=== PATIENT | male | born 1950 | race Caucasian/White ===

== ENCOUNTER 2019-01-30 09:41 | Inpatient (IN) | payer MEDICARE, OTHER ==
[~2019-01-30] VITALS: Ht 162.6 cm; Wt 80.1 kg
[~2019-01-30 09:41] MED LIST: /VERA12TA PO; ASPIRIN PO; CELE1CAP4 PO; COUM1TAB18 PO; COZA100T2 PO; DIPYRIDAMOLE PO; LIPI20TA PO; LYRI75CA PO; OXYC1TAB23 PO; SILD50TA OR; TYLE325T5 PO; ULTR50TA PO; VITAD1000T OR; [UNRECOGNIZED DRUG - CODE] PO
[2019-01-30] MEDS ORDERED: CIAL10TA PO (09:48)
[2019-01-30] MEDS ORDERED: LOSA25TA14 PO (09:48)
[2019-01-30] MEDS ORDERED: MULTCAP PO (09:48)
[2019-01-30] MEDS ORDERED: ZANT150T40 PO (09:48)
[2019-01-30 10:13] LABS: BASO % 0.2 % (0.0-1.0); EOS # 0.1 10^3/uL (0.0-0.50); HEMOGLOBIN 9.6 g/dl (13.5-17.5); LYMPH % 18.9 % (24.0-44.0); MEAN CORPUSCULAR HEMOGLOBIN 33.7 pg (27.0-33.0); MEAN CORPUSCULAR HGB CONC 33.1 g/dl (32.0-36.5); MEAN CORPUSCULAR VOLUME 101.8 fl (80.0-96.0); MONO # 0.5 10^3/uL (0.0-0.8); MONO % 9.7 % (0.0-5.0); NEUTROPHILS # 3.8 10^3/uL (1.8-7.7); PLATELET COUNT, AUTOMATED 235 10^3/uL (150-450); RED BLOOD COUNT 2.85 10^6/uL (4.30-6.10); WHITE BLOOD COUNT 5.5 10^3/uL (4.0-10.0)
[2019-01-30 10:42] LABS: BLOOD UREA NITROGEN 18 MG/DL (7-18); CALCIUM LEVEL 8.8 MG/DL (8.8-10.2); CARBON DIOXIDE LEVEL 30 MEQ/L (21-32); CHLORIDE LEVEL 107 MEQ/L (98-107); CREATININE FOR GFR 0.83 MG/DL (0.70-1.30); GLOMERULAR FILTRATION RATE > 60.0 (>49); GLUCOSE, FASTING 82 MG/DL (70-100); SODIUM LEVEL 143 MEQ/L (136-145)
[2019-01-30] MEDS ORDERED: PANTOPRAZOLE 40MG INJ (PROTONIX) (C9113) IV ONE (11:30)
[2019-01-30 11:32] LABS: INR 1.13; PARTIAL THROMBOPLASTIN TIME 27.1 SECONDS (25.0-38.4); PROTHROMBIN TIME 14.2 SECONDS (11.8-14.0)
[2019-01-30 11:42] LABS: CK-MB VALUE MASS 1.7 NG/ML (<3.6); CPK CREATINE PHOSPHOKINASE 85 U/L (39-308); TROPONIN I < 0.02 NG/ML (< 0.10)
[2019-01-30] MEDS: PANTOPRAZOLE SODIUM 40 MG in D5W 50 ML IV SCH ×3 (12:11→20:32)
[2019-01-30] MEDS ORDERED: CALCCAP4 PO (13:38)
[2019-01-30] MEDS ORDERED: ATOR1TAB21 PO (13:38)
[2019-01-30] MEDS ORDERED: RANI300T PO (13:38)
[2019-01-30] MEDS ORDERED: VERA300C PO (13:38)
[2019-01-30] MEDS ORDERED: AGGR1CAP PO (13:38)
[2019-01-30] MEDS ORDERED: VITA500T41 PO (13:38)
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
[2019-01-30 16:15] VITALS: BP 136/77
[2019-01-30] MEDS: SUCRALFATE 1 GM TAB PO SCH ×2 (16:32→20:32)
[2019-01-30 16:35] LABS: HEMATOCRIT 27.5 % (42.0-52.0); HEMOGLOBIN 9.3 g/dl (13.5-17.5)
[2019-01-30 16:40] VITALS: BP_SYST 124; BP_SYST 126; BP_SYST 133; BP_DIAS 86; BP_DIAS 88; BP_DIAS 90
--- NOTE | 2019-01-30 20:17 | ECGEPIP ---
[facility] - ED Test Date: 2019-01-30 Pat Name: VALORIE CHAVEZ Department: Room: - Gender: Male Clock Maker: [id number] : [id number] Requested By: Tal Gunter Order Number: [id number] Reading MD: Tal Kinsey Measurements Intervals [place] Rate: 53 P: 16 VA: 219 QRS: -32 QRSD: 165 T: 44 QT: 494 QTc: 467 Interpretive Statements SINUS BRADYCARDIA WITH FIRST DEGREE AV BLOCK WITH OCCASIONAL SUPRAVENTRICULAR PREMATURE COMPLEXES NO PRIORS FOR COMPARISON LEFT AXIS DEVIATION LEFT BUNDLE BRANCH BLOCK Electronically Signed on 01-30-2019 20:16:38 EDT by Tal Kinsey
[2019-01-30 22:00] VITALS: BP 112/73
[2019-01-30 22:09] LABS: HEMOGLOBIN 9.2 g/dl (13.5-17.5)
[2019-01-30 22:30] VITALS: BP_SYST 106; BP_SYST 138; BP_SYST 146; BP_DIAS 59; BP_DIAS 76; BP_DIAS 79
[2019-01-31] MEDS: PANTOPRAZOLE SODIUM 40 MG in D5W 50 ML IV SCH ×5 (03:23→23:32)
[2019-01-31 04:16] LABS: BASO % 0.2 % (0.0-1.0); EOS # 0.2 10^3/uL (0.0-0.50); EOS % 3.8 % (0.0-3.0); HEMATOCRIT 27.4 % (42.0-52.0); HEMOGLOBIN 9.1 g/dl (13.5-17.5); LYMPH # 1.2 10^3/uL (1.5-4.5); LYMPH % 23.7 % (24.0-44.0); MEAN CORPUSCULAR HEMOGLOBIN 32.7 pg (27.0-33.0); MEAN CORPUSCULAR HGB CONC 33.2 g/dl (32.0-36.5); MEAN CORPUSCULAR VOLUME 98.6 fl (80.0-96.0); MONO # 0.7 10^3/uL (0.0-0.8); MONO % 13.1 % (0.0-5.0); PLATELET COUNT, AUTOMATED 215 10^3/uL (150-450); RED BLOOD COUNT 2.78 10^6/uL (4.30-6.10)
[2019-01-31 04:39] LABS: BLOOD UREA NITROGEN 11 MG/DL (7-18); CARBON DIOXIDE LEVEL 32 MEQ/L (21-32); CHLORIDE LEVEL 109 MEQ/L (98-107); CREATININE FOR GFR 0.85 MG/DL (0.70-1.30); GLOMERULAR FILTRATION RATE > 60.0 (>49); GLUCOSE, FASTING 93 MG/DL (70-100); POTASSIUM SERUM 4.7 MEQ/L (3.5-5.1); SODIUM LEVEL 143 MEQ/L (136-145)
[2019-01-31 06:00] VITALS: BP 120/75
[2019-01-31] MEDS: SUCRALFATE 1 GM TAB PO SCH ×4 (08:07→21:50)
[2019-01-31] MEDS: ATORVASTATIN 20 MG TAB PO SCH (08:07)
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
[2019-01-31 12:03] LABS: HEMATOCRIT 29.4 % (42.0-52.0); HEMOGLOBIN 9.7 g/dl (13.5-17.5)
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
[2019-01-31 14:00] VITALS: BP 127/60
[2019-01-31 14:30] VITALS: BP_SYST 130; BP_SYST 131; BP_SYST 132; BP_DIAS 69; BP_DIAS 70
[2019-01-31 16:16] LABS: HEMATOCRIT 31.3 % (42.0-52.0); HEMOGLOBIN 10.4 g/dl (13.5-17.5)
[2019-01-31 22:00] VITALS: BP_SYST 133; BP_SYST 141; BP_SYST 143; BP_SYST 144; BP_DIAS 72; BP_DIAS 75; BP_DIAS 78; BP_DIAS 80
[2019-02-01 00:41] LABS: HEMOGLOBIN 9.2 g/dl (13.5-17.5)
[2019-02-01] MEDS: PANTOPRAZOLE SODIUM 40 MG in D5W 50 ML IV SCH (04:37)
[2019-02-01 06:00] VITALS: BP_SYST 131; BP_SYST 144; BP_SYST 154; BP_SYST 155; BP_DIAS 73; BP_DIAS 84; BP_DIAS 86; BP_DIAS 88
[2019-02-01] MEDS ORDERED: SUCR1TA PO (07:04)
[2019-02-01] MEDS ORDERED: PANT40TA3 PO ×2 (07:04→10:20)
[2019-02-01] MEDS ORDERED: VERA100C PO (07:04)
[2019-02-01 07:49] LABS: BASO % 0.3 % (0.0-1.0); EOS # 0.2 10^3/uL (0.0-0.50); EOS % 2.3 % (0.0-3.0); HEMATOCRIT 30.7 % (42.0-52.0); HEMOGLOBIN 9.9 g/dl (13.5-17.5); LYMPH # 1.2 10^3/uL (1.5-4.5); MEAN CORPUSCULAR HEMOGLOBIN 32.9 pg (27.0-33.0); MEAN CORPUSCULAR HGB CONC 32.2 g/dl (32.0-36.5); MONO # 0.7 10^3/uL (0.0-0.8); NEUTROPHILS # 4.8 10^3/uL (1.8-7.7); NEUTROPHILS % 70.3 % (36.0-66.0); PLATELET COUNT, AUTOMATED 274 10^3/uL (150-450); RED BLOOD COUNT 3.01 10^6/uL (4.30-6.10); WHITE BLOOD COUNT 6.8 10^3/uL (4.0-10.0)
[2019-02-01] MEDS: SUCRALFATE 1 GM TAB PO SCH (07:56)
[2019-02-01] MEDS: ATORVASTATIN 20 MG TAB PO SCH (07:57)
[2019-02-01 08:17] LABS: BLOOD UREA NITROGEN 10 MG/DL (7-18); CALCIUM LEVEL 8.6 MG/DL (8.8-10.2); CARBON DIOXIDE LEVEL 32 MEQ/L (21-32); CHLORIDE LEVEL 108 MEQ/L (98-107); CREATININE FOR GFR 0.92 MG/DL (0.70-1.30); FERRITIN 13 NG/ML (26-388); GLOMERULAR FILTRATION RATE > 60.0 (>49); GLUCOSE, FASTING 95 MG/DL (70-100); IRON (FE) 18 UG/DL (65-175); PERCENT SATURATION 5.9 % (19.7-50.0); POTASSIUM SERUM 4.2 MEQ/L (3.5-5.1); SODIUM LEVEL 144 MEQ/L (136-145); TOTAL IRON BINDING CAPACITY 306 UG/DL (250-450)
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
[2019-02-01] MEDS ORDERED: PANTOPRAZOLE 40MG TAB (PROTONIX) PO SCH (21:00)
[2019-02-02 11:47] LABS: VITAMIN B12 LEVEL 1349 PG/ML (247-911)
[2019-02-02 11:48] LABS: FOLATE > 24.0 NG/ML (>5.4)
== END 2019-02-01 12:48 | disposition home or self-care (01) | DRG 379 ==
LOC: M ED 09:41 → M ED INP 13:00 → M MSPAV 16:12
PROVIDERS: ADMIT Internal Medicine Nephrology; ATTEND Internal Medicine Nephrology
DX: K25.4 Chronic or unspecified gastric ulcer with hemorrhage (principal); I10 Essential (primary) hypertension; E78.5 Hyperlipidemia, unspecified; E66.01 Morbid (severe) obesity due to excess calories; N40.0 Benign prostatic hyperplasia without lower urinary tract symptoms; Z98.84 Bariatric surgery status; I69.322 Dysarthria following cerebral infarction; R20.0 Anesthesia of skin; I69.398 Other sequelae of cerebral infarction; Z79.899 Other long term (current) drug therapy; Z79.82 Long term (current) use of aspirin; Z96.641 Presence of right artificial hip joint; Z87.891 Personal history of nicotine dependence; D64.9 Anemia, unspecified

== ENCOUNTER 2023-08-22 07:20 | Day surgery (SDC) | payer MEDICARE, OTHER ==
[~2023-08-22] VITALS: Ht 165.1 cm; Wt 86.5 kg
[~2023-08-22 07:20] MED LIST changes: +AGGR1CAP PO; +ATOR1TAB21 PO; +CALCCAP4 PO; +CIAL10TA PO; +CLOP75TA2 PO; +FERR325T3 PO; +LOSA100T46 PO; +LOSA25TA13 PO; +MULTCAP PO; +PANT20TA6 PO; +PANT40TA29 PO; +RANI300T PO; +SUCR1TA PO; +SUCR1TAB56 PO; +THERTAB52 PO; +VERA100C4 PO; +VERA300C6 PO; +VITA500C19 PO; +VITA500T41 PO; +ZANT150T40 PO
[2023-08-22] MEDS ORDERED: propofoL 200 MG/20 ML VIAL As Ordered ONE (08:07)
[2023-08-22] MEDS ORDERED: LIDOCAINE 2% 100MG/5ML SDV (FOR ANES.) As Ordered ONE (08:07)
[2023-08-22] MEDS ORDERED: ONDANSETRON 4MG 2ML VIAL As Ordered ONE (08:07)
[2023-08-22] MEDS ORDERED: KETOROLAC 60MG 2ML VIAL As Ordered ONE (08:07)
[2023-08-22] MEDS: LR 1,000 ML IV SCH (08:26)
[2023-08-22] MEDS: ceFAZolin SOD 2 GM in IV 1 EA IV ONE (08:55)
[2023-08-22] MEDS: LIDOCAINE 1% MDV 20ML VIAL As Ordered ONE (09:12)
[2023-08-22 10:15] VITALS: BP 152/88; TEMP 97.3; O2SAT 97
== END 2023-08-22 10:20 | disposition home or self-care (01) ==
LOC: M SDC 07:20
PROVIDERS: ATTEND Podiatrist Foot & Ankle Surgery
DX: M20.21 Hallux rigidus, right foot (principal); I10 Essential (primary) hypertension; K21.9 Gastro-esophageal reflux disease without esophagitis; E78.5 Hyperlipidemia, unspecified; D64.9 Anemia, unspecified; Z98.84 Bariatric surgery status; G40.909 Epilepsy, unspecified, not intractable, without status epilepticus; Z86.73 Personal history of transient ischemic attack (TIA), and cerebral infarction without residual deficits; Z79.02 Long term (current) use of antithrombotics/antiplatelets; Z79.899 Other long term (current) drug therapy
CPT/HCPCS: 28289; J0665; J0690; J1885; J2405